=== PATIENT | male | born 1980 | race Caucasian/White ===

== ENCOUNTER 2016-07-13 | Outpatient (CLI) | END 2016-07-13 22:02 | disposition EMS.NT ==

== ENCOUNTER 2017-12-04 08:21 | Emergency (ER) | payer MEDICAID ==
--- NOTE | 2017-12-04 09:15 | ED Physician Documentation ---
History of Present Illness - Stated complaint Stated Complaint: FOOT PX - Chief complaint Chief Complaint: Ext Problem - Additonal information Additional information: hx from pt 37 male has had pain to heel and arch especially when first getting up for many months had a minor injury when tripped crossing the yard but no sig fall from height etc his is at the hospital today for surgery so he figured he would get it checked out Review of Systems Musculoskeletal: reports: Pain with weight bearing PD PAST MEDICAL HISTORY - Past Medical History Past Medical History: No - Past Surgical History Past Surgical History: Yes General: Other HEENT: Myringotomy (tubes) - Present Medications Home Medications: Ambulatory Orders Medication Instructions Recorded Confirmed No Known Home Medications [No 12/04/17 12/04/17 Known Home Medications] - Allergies Allergies/Adverse Reactions: Allergies Allergy/AdvReac Type Severity Reaction Status Date / Time No Known Drug Allergies Allergy Verified 04/17/16 18:37 - Social History Does the pt smoke?: No Smoking Status: Never smoker Does the pt drink ETOH?: Yes Does the pt have substance abuse?: No - Immunizations Immunizations are current?: No Immunizations: TDAP >10years/unknown - POLST Patient has POLST: No PD ED PE NORMAL - Vitals Vital signs reviewed: Yes - Extremities Extremities: Other (R foot - no defmority sig swelling redness warmth or bruising, achilles intact, nl edwards test, TTP pad of heel and proximal arch, MSV intact) Results - Vitals Vitals: Vital Signs - 24 hr 12/04/17 08:25 Temperature 36.0 C L Heart Rate 82 Respiratory 16 Rate Blood Pressure 149/93 H O2 Saturation 99 Oxygen O2 Source Room air - Rads (name of study) foot Radiology: See rad report (no fx, achilles bone spur) Departure - Departure Disposition: 01 Home, Self Care Clinical Impression: Plantar fasciitis Condition: Good Instructions: ED Plantar Fasciitis, ED Heel Spur Follow-Up: [facility] [Provider Group] Comments: The xray shows no fracture but you do have a small bone spur The pain you describe and you exam suggest you have plantar fasciitis This can be improved with the following steps Stretch you achilles and calf every day Ice and stretch your foot by rolling a frozen water bottle under your arch Wear a shoe insert with good arch support Take an anti-inflammatory such as motrin three times a day with meals for a week , then as needed If you do not get better with these steps, please follow up with orthopedics
--- NOTE | 2017-12-04 10:09 | XRAY Report ---
EXAM: RIGHT FOOT RADIOGRAPHY EXAM DATE: 12/04/2017 09:37 AM. CLINICAL HISTORY: Foot pain. COMPARISON: None. TECHNIQUE: 3 views. FINDINGS: Bones: Normal. No fractures or bone lesions. Joints: Normal. No subluxations. Soft Tissues: A tiny posterior calcaneal enthesophyte at Achilles insertion. No soft tissue swelling. IMPRESSION: 1. No fracture evident. 2. Tiny posterior calcaneal enthesophyte. [facility] Referring Provider Line: [phone] SITE ID: [id number]
[2017-12-04 11:11] VITALS: BP 149/102
== END 2017-12-04 11:12 | disposition home or self-care (01) ==
LOC: ED 08:21
DX: M72.2 Plantar fascial fibromatosis (principal)
CPT/HCPCS: 99282; 99283

== ENCOUNTER 2018-05-14 11:29 | Outpatient (CLI) | payer MEDICAID ==
--- NOTE | 2018-05-14 14:14 | XRAY Report ---
Reason: JOINT PAIN LEFT KNEE Procedure Date: 05/14/2018 Accession Number: [id number] / [id number] Procedure: XRN - Knee 3 View LT CPT Code: FULL RESULT: EXAM: LEFT KNEE RADIOGRAPHY EXAM DATE: 05/14/2018 11:45 AM. CLINICAL HISTORY: JOINT PAIN LEFT KNEE. COMPARISON: None. TECHNIQUE: 3 views. FINDINGS: Bones: No fractures or bone lesions. Joints: No effusion. No subluxations. Soft Tissues: No soft tissue swelling. IMPRESSION: Negative knee radiography. [facility]
== END 2018-05-14 11:30 | disposition home or self-care (01) ==
LOC: DI.N 11:29
PROVIDERS: ATTEND Nurse Practitioner
DX: M25.562 Pain in left knee (principal)

== ENCOUNTER 2019-03-26 21:31 | Emergency (ER) | payer MEDICAID ==
[2019-03-26 21:38] VITALS: BP 137/90
--- NOTE | 2019-03-26 21:52 | ED Physician Documentation ---
PD HPI LOWER EXT INJURY - Stated complaint Stated Complaint: RIGHT FOOT PX - Chief complaint Chief Complaint: Ext Problem - History obtained from History obtained from: Patient - History of Present Illness PD HPI LOW EXT INJURY LOCATION: Right (For about a week and a half without specific trauma he noticed lateral right foot pain. Is much worse at the end of the workday, he works stocking shelves at a local store. He does not remember specific injury but there may have been an injury he says. No fevers.) Review of Systems Constitutional: denies: Fever, Chills Respiratory: reports: Reviewed and negative GI: reports: Reviewed and negative PD PAST MEDICAL HISTORY - Past Medical History Past Medical History: No Cardiovascular: Hypertension Respiratory: None Neuro: None Endocrine/Autoimmune: None GI: None : None HEENT: None Psych: None Musculoskeletal: None - Past Surgical History Past Surgical History: Yes General: Other HEENT: Myringotomy (tubes) - Present Medications Home Medications: Ambulatory Orders Medication Instructions Recorded Confirmed Hydrocodone/Acetaminophen 1 - 2 each PO Q6H PRN #10 tablet 03/26/19 [Hydrocodon-Acetaminophen 5-325] Ibuprofen [Motrin] 800 mg PO Q8H PRN #30 tablet 03/26/19 - Allergies Allergies/Adverse Reactions: Allergies Allergy/AdvReac Type Severity Reaction Status Date / Time No Known Drug Allergies Allergy Verified 03/26/19 21:37 - Social History Does the pt smoke?: No Smoking Status: Never smoker Does the pt drink ETOH?: Yes Does the pt have substance abuse?: No - Immunizations Immunizations are current?: No Immunizations: TDAP >10years/unknown - POLST Patient has POLST: No PD ED PE NORMAL - Vitals Vital signs reviewed: Yes - General General: Alert and oriented X 3, No acute distress - Extremities Extremities: Other (He is tender and swollen mostly over the lateral fifth proximal metatarsal, there is no redness. No warmth. He has passive range of motion of the ankle that is painless.) - Neuro Neuro: Alert and oriented X 3, Normal speech Results - Vitals Vitals: Vital Signs - 24 hr 03/26/19 21:35 Temperature 36.0 C L Heart Rate 75 Respiratory 14 Rate Blood Pressure 137/90 H O2 Saturation 97 Oxygen O2 Source Room air - Rads (name of study) 3v R foot Radiology: EMP read contemporaneously (normal) PD MEDICAL DECISION MAKING - ED course ED course: 38-year-old gentleman with what seems like tendinitis of the lateral side of his right foot. Relevant x-rays were negative. He is placed in a boot and given conservative care ideas and advised to follow-up with the steam table worker. Departure - Departure Disposition: Home, Self Care Clinical Impression: Tendinitis of right foot Condition: Good Record reviewed to determine appropriate education?: Yes Instructions: Tendinitis Foot Follow-Up: Mer Barker DPM [Provider Admit Priv/Credential] - Prescriptions: Hydrocodone/Acetaminophen [Hydrocodon-Acetaminophen 5-325] 1 - 2 each PO Q6H PRN #10 tablet PRN Reason: pain Ibuprofen [Motrin] 800 mg PO Q8H PRN #30 tablet PRN Reason: PAIN &/OR FEVER Comments: Return if you worsen or new symptoms develop. Return immediately for fever. If you are not better in a week follow-up with the steam table worker. Forms: Activity restrictions Discharge Date/Time: 03/26/19 22:30
[2019-03-26] MEDS ORDERED: HYDROcod/ACET 5/325 Prepack 4 PO STA (22:11)
--- NOTE | 2019-03-26 22:17 | XRAY Report ---
Reason: lateral foot pain Procedure Date: 03/26/2019 Accession Number: [id number] / [id number] Procedure: XR - Foot 3 View RT CPT Code: FULL RESULT: EXAM: RIGHT FOOT RADIOGRAPHY EXAM DATE: 03/26/2019 10:01 PM. CLINICAL HISTORY: Lateral foot pain. COMPARISON: FOOT 3 VIEW RT 12/04/2017 9:18 AM. TECHNIQUE: 3 views. FINDINGS: Bones: Normal. No fractures or bone lesions. Small Achilles tendon insertional enthesophyte. Joints: Normal. No subluxations. Soft Tissues: Normal. No soft tissue swelling. IMPRESSION: No acute fractures or malalignment. [facility]
== END 2019-03-26 22:30 | disposition home or self-care (01) ==
LOC: ED 21:31
DX: M77.51 Other enthesopathy of right foot and ankle (principal); I10 Essential (primary) hypertension
CPT/HCPCS: 99283

== ENCOUNTER 2019-03-31 09:56 | Emergency (ER) | payer MEDICAID ==
[2019-03-31 10:05] VITALS: BP 145/101
--- NOTE | 2019-03-31 10:16 | ED Physician Documentation ---
PD HPI WOUND RECHECK - Stated complaint Stated Complaint: RECHECK FOOT - Histroy obtained from History obtained from: Patient - History of Present Illness Location: Right Foot Timing - onset: How many weeks ago (1) Associated symptoms: Pain, Other (he had had foot pain without apparent injury. Seen in ER and given work note off. Meds Rx. He says he is considerably improved and foot not hurting with use/walking. He needs note to return to work.). No: Fever, Redness, Swelling Recently seen: Emergency Dept Review of Systems Constitutional: denies: Fever, Chills Skin: denies: Rash, Lesions Neurologic: denies: Focal weakness, Numbness PD PAST MEDICAL HISTORY - Past Medical History Cardiovascular: Hypertension Respiratory: None Neuro: None Endocrine/Autoimmune: None GI: None : None HEENT: None Psych: None Musculoskeletal: None - Past Surgical History Past Surgical History: Yes General: Other HEENT: Myringotomy (tubes) - Present Medications Home Medications: Ambulatory Orders Medication Instructions Recorded Confirmed Hydrocodone/Acetaminophen 1 - 2 each PO Q6H PRN #10 tablet 03/26/19 [Hydrocodon-Acetaminophen 5-325] Ibuprofen [Motrin] 800 mg PO Q8H PRN #30 tablet 03/26/19 - Allergies Allergies/Adverse Reactions: Allergies Allergy/AdvReac Type Severity Reaction Status Date / Time No Known Drug Allergies Allergy Verified 03/31/19 10:05 - Social History Does the pt smoke?: No Smoking Status: Never smoker Does the pt drink ETOH?: Yes Does the pt have substance abuse?: No - Immunizations Immunizations are current?: No Immunizations: TDAP >10years/unknown - POLST Patient has POLST: No PD ED PE NORMAL - Vitals Vital signs reviewed: Yes - General General: Alert and oriented X 3, No acute distress, Well developed/nourished - Derm Derm: Normal color, Warm and dry - Extremities Extremities: Other (right foot without tenderness nor deformity. Good ROM. Normal pulses and cap refill. ) Results - Vitals Vitals: Vital Signs - 24 hr 03/31/19 10:01 Temperature 36.5 C Heart Rate 82 Respiratory 18 Rate Blood Pressure 145/101 H O2 Saturation 97 Oxygen O2 Source Room air PD MEDICAL DECISION MAKING - ED course Complexity details: reviewed old records, considered differential, d/w patient Departure - Departure Disposition: 01 Home, Self Care Clinical Impression: Tendinitis of right foot Condition: Stable Record reviewed to determine appropriate education?: Yes Comments: Continue the stretching of the foot and ankle muscles. Be sure to have good arch support and cushioning for the foot during work. You can use Tylenol or ibuprofen for work and also consider some ice or cool towels along with some ibuprofen or naproxen after work for the next week or so to help keep this from recurring. Forms: Activity restrictions Discharge Date/Time: 03/31/19 10:42
== END 2019-03-31 10:42 | disposition home or self-care (01) ==
LOC: ED 09:56
DX: M77.51 Other enthesopathy of right foot and ankle (principal); I10 Essential (primary) hypertension
CPT/HCPCS: 99281; 99282

== ENCOUNTER 2019-04-14 10:22 | Emergency (ER) | payer MEDICAID ==
[2019-04-14 11:03] LABS: BASOPHILS % (AUTO) 0.3 %; EOSINOPHILS # (AUTO) 0.1 10^3/uL (0.0-0.7); EOSINOPHILS % (AUTO) 1.9 %; HGB - HEMOGLOBIN 17.9 g/dL (14.0-18.0); LYMPHOCYTES # (AUTO) 2.1 10^3/uL (1.5-3.5); LYMPHOCYTES % (AUTO) 36.4 %; MEAN CORPUSCULAR HEMOGLOBIN 31.1 pg (27.0-31.0); MEAN CORPUSCULAR HGB CONC 34.6 g/dL (32.0-36.0); MEAN CORPUSCULAR VOLUME 90.1 fL (80.0-94.0); MONOCYTES # (AUTO) 0.5 10^3/uL (0.0-1.0); MONOCYTES % (AUTO) 9.1 %; PLT - PLATELET COUNT 223 10^3/uL (130-450); RED BLOOD COUNT 5.75 10^6/uL (4.70-6.10); RED CELL DISTRIBUTION WIDTH 12.4 % (12.0-15.0); WHITE BLOOD COUNT 5.7 x10^3/uL (4.8-10.8)
[2019-04-14 11:03] LABS: BILIRUBIN,URINE NEGATIVE (NEGATIVE); GLUCOSE, URINE (UA) NEGATIVE (NEGATIVE); KETONES,URINE (UA) NEGATIVE (NEGATIVE); LEUKOCYTE ESTERASE, URINE NEGATIVE (NEGATIVE); NITRITE,URINE NEGATIVE (NEGATIVE); OCCULT BLOOD,URINE NEGATIVE (NEGATIVE); PROTEIN,URINE NEGATIVE (NEGATIVE); UROBILINOGEN,URINE 0.2 (NORMAL) E.U./dL (NORMAL)
[2019-04-14 11:14] LABS: CLARITY,URINE CLEAR (CLEAR)
[2019-04-14 11:17] LABS: ALBUMIN 4.4 g/dL (3.2-5.5); ALBUMIN/GLOBULIN RATIO 1.2 (1.0-2.2); BILIRUBIN,TOTAL 0.6 mg/dL (0.2-1.0); CALCIUM 9.2 mg/dL (8.5-10.3); CREATININE 0.8 mg/dL (0.6-1.2)
--- NOTE | 2019-04-14 11:35 | ED Physician Documentation ---
PD HPI ABD PAIN - Stated complaint Stated Complaint: LOWER ABD PX - Chief complaint Chief Complaint: Abd Pain - History obtained from History obtained from: Patient - History of Present Illness Timing - onset: Last night Timing - details: Abrupt onset, Still present Quality: Cramping, Aching, Pain Location: Periumbilical, RLQ Radiation: No: Chest, Lower back Improved by: No: BM Worsened by: Eating, Palpation Associated symptoms: Nausea. No: Fever, Vomiting, Diarrhea, Constipation Similar symptoms before: Has not had sx before Recently seen: Emergency Dept (for foot tendonitis, couple weeks ago, improved and doing well.) Review of Systems Constitutional: denies: Fever, Chills Nose: denies: Rhinorrhea / runny nose, Congestion Throat: denies: Sore throat Respiratory: denies: Cough GI: denies: Vomiting, Constipation, Diarrhea PD PAST MEDICAL HISTORY - Past Medical History Cardiovascular: Hypertension Respiratory: None Neuro: None Endocrine/Autoimmune: None GI: None : None HEENT: None Psych: None Musculoskeletal: None - Past Surgical History Past Surgical History: Yes General: Other HEENT: Myringotomy (tubes) - Present Medications Home Medications: Ambulatory Orders Medication Instructions Recorded Confirmed Hydrocodone/Acetaminophen 1 - 2 each PO Q6H PRN #10 tablet 03/26/19 [Hydrocodon-Acetaminophen 5-325] Ibuprofen [Motrin] 800 mg PO Q8H PRN #30 tablet 03/26/19 - Allergies Allergies/Adverse Reactions: Allergies Allergy/AdvReac Type Severity Reaction Status Date / Time No Known Drug Allergies Allergy Verified 04/14/19 10:46 - Social History Does the pt smoke?: No Smoking Status: Never smoker Does the pt drink ETOH?: Yes Does the pt have substance abuse?: No - Immunizations Immunizations are current?: No Immunizations: TDAP >10years/unknown - POLST Patient has POLST: No PD ED PE NORMAL - Vitals Vital signs reviewed: Yes - General General: Alert and oriented X 3, Well developed/nourished, Other - HEENT HEENT: Pharynx benign - Neck Neck: Supple, no meningeal sign, No adenopathy - Cardiac Cardiac: RRR, No murmur - Respiratory Respiratory: Clear bilaterally - Abdomen Abdomen: Soft, Non distended, No organomegaly, Other (Obese. There is protrusion of an umbilical hernia with tenderness. There is no redness. It is moderately firm. There is also tenderness in the right lower quadrant with out any percussion or rebound tenderness. Inguinal areas are normal. Bowel sounds are present and hyperactive.) - Male Male : Other (normal) - Rectal Rectal: Deferred - Back Back: No CVA TTP - Derm Derm: Normal color Results - Vitals Vitals: Vital Signs - 24 hr 04/14/19 04/14/19 04/14/19 10:44 12:26 14:00 Temperature 36.7 C Heart Rate 83 71 72 Respiratory 16 18 18 Rate Blood Pressure 139/96 H 140/97 H 130/93 H O2 Saturation 98 97 99 Oxygen O2 Source Room air - Labs Labs: Laboratory Tests 04/14/19 04/14/19 04/14/19 10:52 10:55 10:55 WBC 5.7 RBC 5.75 Hgb 17.9 Hct 51.8 MCV 90.1 MCH 31.1 H MCHC 34.6 RDW 12.4 Plt Count 223 MPV 10.0 Neut # (Auto) 3.0 Lymph # (Auto) 2.1 Gem # (Auto) 0.5 Eos # (Auto) 0.1 Baso # (Auto) 0.0 Absolute Nucleated RBC 0.00 Nucleated RBC % 0.0 Sodium 140 Potassium 4.4 Chloride 101 Carbon Dioxide 29 Anion Gap 10.0 BUN 6 Creatinine 0.8 Estimated GFR (MDRD) 108 Glucose 100 Calcium 9.2 Total Bilirubin 0.6 AST 34 ALT 49 Alkaline Phosphatase 94 Total Protein 8.0 Albumin 4.4 Globulin 3.6 Albumin/Globulin Ratio 1.2 Lipase 57 H Urine Color YELLOW Urine Clarity CLEAR Urine pH 6.0 Ur Specific [place] <=1.005 Urine Protein NEGATIVE Urine Glucose (UA) NEGATIVE Urine Ketones NEGATIVE Urine Occult Blood NEGATIVE Urine Nitrite NEGATIVE Urine Bilirubin NEGATIVE Urine Urobilinogen 0.2 (NORMAL) Ur Leukocyte Esterase NEGATIVE Ur Microscopic Review NOT INDICATED Urine Culture Comments NOT INDICATED - Rads (name of study) abd CT Radiology: Prelim report reviewed (Appendix is normal. Other intra-abdominal organs are normal. There is fat-containing hernia in the umbilical area with some inflammation around it consistent with incarcerated hernia.), See rad report Procedures - General procedure General procedure: With IV pain medication and in the supine position, gentle pressure was applied to the umbilical hernia with deflation of it and subsequent reduction with improvement in his abdominal pain. PD MEDICAL DECISION MAKING - ED course Complexity details: reviewed results (CT scan showed normal appendix and no other intra-abdominal pathology. There is a incarcerated hernia of fat stranding and no bowel obstruction evident.), re-evaluated patient (His pain is improved after reduction of the hernia.), considered differential (Location of pain could be consistent with appendicitis and subsequently have an incidental hernia. However it may be incarcerated hernia. He does not have obstructive symptoms per se but will get a CT scan to evaluate.), d/w patient Departure - Departure Disposition: 01 Home, Self Care Clinical Impression: Periumbilical abdominal pain, Incarcerated umbilical hernia Condition: Stable Record reviewed to determine appropriate education?: Yes Instructions: ED Hernia Inguinal Follow-Up: Gui Llanos MD [Provider Admit Priv/Credential] - Comments: Avoid heavy lifting for a day or 2. Use a daily stool softener. Use some anti- inflammatories such as ibuprofen 2-3 times a day for the next 5 or 6 days to help reduce the inflammation that resulted from the trapped hernia. At this point the hernia is untrapped. It may pooch out under pressure but as long as is not hurting or red nor tender than no worries and it is okay for it to just be bulged out at times. If it does protrude out and is firm and tender and hurting, then lay down on your back, put some cool towels or ice on it, and gently apply pressure to see if it will reduce back in. Return to the ER if it does not do that and continues hurting. Follow-up with surgery at some point to discuss having it repaired. As long as it does not get incarcerated again, there is not a time urgency to that.
[2019-04-14] MEDS ORDERED: ONDANSETRON 4 MG/2 ML VIAL IVP STA (11:50)
[2019-04-14] MEDS ORDERED: HYDROmorphone 1 MG/ML CARPUJECT IVP STA ×2 (11:50→13:12)
[2019-04-14] MEDS ORDERED: IOPAMIDOL-370 100 ML VIAL ONE (12:12)
[2019-04-14] MEDS ORDERED: IOVERSOL 320 100 ML VIAL IVP ONE ×2 (12:12→13:44)
[2019-04-14] MEDS ORDERED: KETOROLAC 15 MG/ML VIAL IVP STA (13:13)
--- NOTE | 2019-04-14 13:32 | CT Report ---
Reason: umbilical and RLQ pain; umb hernia noted Procedure Date: 04/14/2019 Accession Number: [id number] / [id number] Procedure: CT - Abdomen/Pelvis W CPT Code: FULL RESULT: EXAM: CT ABDOMEN AND PELVIS EXAM DATE: 04/14/2019 12:56 PM. CLINICAL HISTORY: Umbilical and RLQ pain; umb hernia noted. COMPARISONS: ABDOMEN/PELVIS W/ 09/16/2015 5:26 PM. TECHNIQUE: Routine helical CT imaging was performed through the abdomen and pelvis. IV contrast: OPTI 320 100ML. Enteric contrast: No. Reconstructions: Coronal and sagittal. In accordance with CT protocol optimization, one or more of the following dose reduction techniques were utilized for this exam: automated exposure control, adjustment of mA and/or KV based on patient size, or use of iterative reconstructive technique. FINDINGS: Lung Bases: Unremarkable. Liver: Fatty infiltrated Gallbladder/Bile Ducts: Unremarkable. Spleen: Normal. Pancreas: Normal. Adrenal Glands: Normal. Kidneys: Normal. No masses or hydronephrosis. Peritoneal: Fat-containing umbilical hernia 4.1 x 4.1 x 3.5 cm. There is stranding of the fat within the hernia.. No free fluid, free air or adenopathy. The appendix is well visualized and normal. Pelvic Organs: Normal. The bladder and visualized pelvic organs are within normal limits. Vasculature: No aneurysms or other significant abnormality. Bones: No significant abnormality. Other: None. IMPRESSION: 1. Fat-containing umbilical hernia 4.1 x 4.1 x 3.5 cm with inflammatory changes. Stranding of the fat within the hernia. This may represent incarcerated hernia 2. Normal appendix [facility]
[2019-04-14 15:27] VITALS: BP 136/102
== END 2019-04-14 15:27 | disposition home or self-care (01) ==
LOC: ED 10:22
DX: K42.0 Umbilical hernia with obstruction, without gangrene (principal); I10 Essential (primary) hypertension
CPT/HCPCS: 36415; 74177; 80053; 81003; 83690; 85025; 96374; 96375; 96376; 99284; J1170; Q9967; 81001; 87086

== ENCOUNTER 2019-05-11 10:17 | Emergency (ER) | payer MEDICAID ==
--- NOTE | 2019-05-11 10:52 | ED Physician Documentation ---
History of Present Illness - Stated complaint Stated Complaint: WELL CHECK - Chief complaint Chief Complaint: General - Additonal information Additional information: This is a 38-year-old male who presents asking for a note clearing him to go back to work. Patient was recently diagnosed with umbilical hernia, he mentioned this to his work, and his boss states that he cannot work until he gets a note stating that is okay for him to work, as they are concerned about the liability of making the umbilical hernia worse. 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 He does not think his umbilical hernia has worsened while he has been working. He wants to return to work and is being careful about not straining himself and uses a partner for 2 person lifts for any heavy objects. He denies any pain or discomfort in the region at this time.No nausea or vomiting. He is working on getting a referral to a general surgeon. Review of Systems Respiratory: denies: Dyspnea GI: denies: Abdominal Pain, Vomiting PD PAST MEDICAL HISTORY - Past Medical History Past Medical History: Yes Cardiovascular: Hypertension Respiratory: None Neuro: None Endocrine/Autoimmune: None GI: None : None HEENT: None Psych: None Musculoskeletal: None Derm: None - Past Surgical History Past Surgical History: Yes General: Other HEENT: Myringotomy (tubes) - Present Medications Home Medications: Ambulatory Orders Medication Instructions Recorded Confirmed Hydrocodone/Acetaminophen 1 - 2 each PO Q6H PRN #10 tablet 03/26/19 [Hydrocodon-Acetaminophen 5-325] Ibuprofen [Motrin] 800 mg PO Q8H PRN #30 tablet 03/26/19 - Allergies Allergies/Adverse Reactions: Allergies Allergy/AdvReac Type Severity Reaction Status Date / Time No Known Drug Allergies Allergy Verified 05/11/19 10:26 - Social History Does the pt smoke?: No Smoking Status: Never smoker Does the pt drink ETOH?: Yes Does the pt have substance abuse?: No - Immunizations Immunizations are current?: No Immunizations: TDAP >10years/unknown - POLST Patient has POLST: No PD ED PE NORMAL - Vitals Vital signs reviewed: Yes - General General: Alert and oriented X 3 - HEENT HEENT: Atraumatic - Cardiac Cardiac: RRR - Respiratory Respiratory: No respiratory distress - Abdomen Abdomen: Normal bowel sounds, Soft, Non tender, Non distended, Other (Small, easily reducible umbilical hernia without tenderness or overlying skin changes) - Neuro Neuro: Alert and oriented X 3 Results - Vitals Vitals: Vital Signs - 24 hr 05/11/19 05/11/19 10:23 11:29 Temperature 36.6 C 36.6 C Heart Rate 90 85 Respiratory 20 18 Rate Blood Pressure 162/97 H 136/98 H O2 Saturation 96 97 Oxygen O2 Source Room air PD MEDICAL DECISION MAKING - ED course ED course: Pt presents asking for note clearing him to work with his umbilical hernia, which is small and reducible. He is being careful not to strain and is not having any issues with the hernia this time. He is in process of establishing with a surgeon to discuss repair. 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 Patient is well aware of concerning symptoms that should cause him to return to care. I wrote him his desired note and patient was discharged home. Departure - Departure Disposition: 01 Home, Self Care Clinical Impression: Umbilical hernia Qualifiers: Obstruction and gangrene presence: without obstruction or gangrene Qualified Code(s): K42.9 - Umbilical hernia without obstruction or gangrene Condition: Good Comments: Please follow-up with your primary care provider for a referral to general surgery, return to the emergency if you are having pain around your bellybutton/hernia site, persistent vomiting, or any other concerning symptoms Forms: Activity restrictions Discharge Date/Time: 05/11/19 11:33
[2019-05-11 11:29] VITALS: BP 136/98
== END 2019-05-11 11:33 | disposition home or self-care (01) ==
LOC: ED 10:17
DX: Z02.89 Encounter for other administrative examinations (principal); K42.9 Umbilical hernia without obstruction or gangrene; I10 Essential (primary) hypertension
CPT/HCPCS: 99282